=== PATIENT | female | born 1940 | race Caucasian/White ===

== ENCOUNTER 2021-05-22 14:31 | Emergency (ER) | payer MEDICARE, OTHER ==
--- NOTE | 2021-05-22 15:11 | EDM.PDOC ---
ED HPI GENERAL MEDICAL PROBLEM - General Chief Complaint: General Stated Complaint: weakness Time Seen by Provider: 05/22/21 14:45 Source of Information: Reports: Patient History Limitations: Reports: No Limitations - History of Present Illness INITIAL COMMENTS - FREE TEXT/NARRATIVE: Aaliyah is a 81 year old female who presents with multiple complaints. States awoke this am at 0500 and "didn't feel good". Took her usual meds at that time which included her diuretic and Miralax. Has been voiding every 30 minutes or so since then and that is unusual for her and "is wearing me out". Has had several soft stools today. Feels pressure in her abdomen from straining to defacate. Feels weak. Mild nausea, no vomiting. No shortness of breath. Mild chest discomfort when she lied down, only lasted a minute or so, none now. Denies dizziness, burning with urination. Has mild headache. Did not have much of an appetite at lunch Onset: Today, Gradual Duration: Hour(s):, Constant Location: Reports: Generalized Quality: Reports: Ache Severity: Mild Associated Symptoms: Denies: Confusion, Chest Pain Past Medical History Cardiovascular History: Reports: High Cholesterol, Hypertension, Pacemaker Gastrointestinal History: Reports: GERD Musculoskeletal History: Reports: Arthritis Endocrine/Metabolic History: Reports: Diabetes, Type II Social & Family History - Tobacco Use Tobacco Use Status *Q: Unknown Ever Used Tobacco ED ROS GENERAL - Review of Systems Review Of Systems: See Below Constitutional: Reports: Malaise, Weakness, Fatigue, Decreased Appetite. Denies: Fever, Chills HEENT: Denies: Ear Pain, Sinus Problem, Throat Pain, Vertigo Respiratory: Denies: Shortness of Breath, Cough Cardiovascular: Reports: Edema. Denies: Chest Pain, Lightheadedness Endocrine: Reports: Fatigue GI/Abdominal: Reports: Abdominal Pain, Nausea. Denies: Constipation, Diarrhea, Vomiting : Reports: Frequency Musculoskeletal: Reports: Joint Pain Skin: Reports: No Symptoms Neurological: Reports: Weakness ED EXAM, GENERAL - Physical Exam Exam: See Below Exam Limited By: No Limitations General Appearance: Alert, WD/WN, No Apparent Distress Ears: Normal External Exam, Normal TMs Nose: Normal Inspection, Normal Mucosa, No Blood Throat/Mouth: Normal Inspection, Normal Oropharynx Head: Normocephalic Neck: Normal Inspection, Supple, Non-Tender Respiratory/Chest: No Respiratory Distress, Lungs Clear, Normal Breath Sounds Cardiovascular: Regular Rate, Rhythm Extremities: Pedal Edema (1+) Neurological: Alert, Oriented Course - Orders/Labs/Meds Orders: Active Orders 24 hr Category Date Time Status CULTURE URINE [RM] Stat Lab 05/22/21 15:35 Received Labs: Laboratory Tests 05/22/21 05/22/21 05/22/21 Range/Units 14:35 15:15 15:15 WBC 11.5 H (4.0-10.0) x10^3/uL RBC 4.32 (4.00-5.50) x10^6/uL Hgb 13.0 (12.0-16.0) g/dL Hct 38.3 (33.0-47.0) % MCV 88.7 (78.0-93.0) fL MCH 30.1 (26.0-32.0) pg MCHC 33.9 (32.0-36.0) g/dL RDW Coeff of Hailey 14.2 (10.0-15.0) % Plt Count 210 (130-400) x10^3/uL Neut % (Auto) 85.8 H (50.0-80.0) % Lymph % (Auto) 8.0 L (25.0-50.0) % Gentry % (Auto) 5.1 (2.0-11.0) % Eos % (Auto) 1.0 (0.0-4.0) % Baso % (Auto) 0.1 L (0.2-1.2) % Sodium 141 (136-145) mmol/L Potassium 3.9 (3.5-5.1) mmol/L Chloride 101 (98-107) mmol/L Carbon Dioxide 29 (21-32) mmol/L Anion Gap 14.9 (5-15) mmol/L BUN 12 (7-18) mg/dL Creatinine 0.9 (0.55-1.02) mg/dL Est Cr Clr Drug Dosing TNP Estimated GFR (MDRD) > 60 Glucose 138 H (70-99) mg/dL Calcium 9.1 (8.5-10.1) mg/dL Corrected Calcium 9.7 (8.5-10.1) mg/dL Total Bilirubin 0.6 (0.2-1.0) mg/dL AST 98 H (15-37) U/L ALT 104 H (14-59) U/L Alkaline Phosphatase 102 (46-116) U/L Troponin I High Sens 28 (<=51) ng/L C-Reactive Protein 4.0 H (<=0.9) mg/dL Total Protein 7.5 (6.4-8.2) g/dL Albumin 3.2 L (3.4-5.0) g/dL Globulin 4.3 Albumin/Globulin Ratio 0.74 Urine Color (YELLOW) Urine Appearance (CLEAR) Urine pH (5.0-8.0) Ur Specific [place] Urine Protein (NEGATIVE) mg/dL Urine Glucose (UA) (NEGATIVE) mg/dL Urine Ketones (NEGATIVE) mg/dL Urine Occult Blood (NEGATIVE) Urine Nitrite (NEGATIVE) Urine Bilirubin (NEGATIVE) Urine Urobilinogen (0.2) EU/dL Ur Leukocyte Esterase (NEGATIVE) U Hyaline Cast (Auto) Urine RBC (NOT SEEN) /HPF Urine WBC (NOT SEEN) /HPF Ur Squamous Epith Cells (NOT SEEN) /HPF Amorphous Sediment Urine Bacteria (NOT SEEN) /HPF Urine Mucus (NOT SEEN) /LPF SARS CoV-2 RNA Rapid ANITA Negative (NEGATIVE) 05/22/21 Range/Units 15:35 WBC (4.0-10.0) x10^3/uL RBC (4.00-5.50) x10^6/uL Hgb (12.0-16.0) g/dL Hct (33.0-47.0) % MCV (78.0-93.0) fL MCH (26.0-32.0) pg MCHC (32.0-36.0) g/dL RDW Coeff of Hailey (10.0-15.0) % Plt Count (130-400) x10^3/uL Neut % (Auto) (50.0-80.0) % Lymph % (Auto) (25.0-50.0) % Gentry % (Auto) (2.0-11.0) % Eos % (Auto) (0.0-4.0) % Baso % (Auto) (0.2-1.2) % Sodium (136-145) mmol/L Potassium (3.5-5.1) mmol/L Chloride (98-107) mmol/L Carbon Dioxide (21-32) mmol/L Anion Gap (5-15) mmol/L BUN (7-18) mg/dL Creatinine (0.55-1.02) mg/dL Est Cr Clr Drug Dosing Estimated GFR (MDRD) Glucose (70-99) mg/dL Calcium (8.5-10.1) mg/dL Corrected Calcium (8.5-10.1) mg/dL Total Bilirubin (0.2-1.0) mg/dL AST (15-37) U/L ALT (14-59) U/L Alkaline Phosphatase (46-116) U/L Troponin I High Sens (<=51) ng/L C-Reactive Protein (<=0.9) mg/dL Total Protein (6.4-8.2) g/dL Albumin (3.4-5.0) g/dL Globulin Albumin/Globulin Ratio Urine Color Dark yellow H (YELLOW) Urine Appearance Slightly cloudy H (CLEAR) Urine pH 5.5 (5.0-8.0) Ur Specific [place] 1.020 Urine Protein 30 H (NEGATIVE) mg/dL Urine Glucose (UA) Negative (NEGATIVE) mg/dL Urine Ketones Negative (NEGATIVE) mg/dL Urine Occult Blood Negative (NEGATIVE) Urine Nitrite Negative (NEGATIVE) Urine Bilirubin Small H (NEGATIVE) Urine Urobilinogen 0.2 (0.2) EU/dL Ur Leukocyte Esterase Trace H (NEGATIVE) U Hyaline Cast (Auto) Few Urine RBC 0-5 (NOT SEEN) /HPF Urine WBC 5-10 H (NOT SEEN) /HPF Ur Squamous Epith Cells Moderate H (NOT SEEN) /HPF Amorphous Sediment Moderate Urine Bacteria Few H (NOT SEEN) /HPF Urine Mucus Few H (NOT SEEN) /LPF SARS CoV-2 RNA Rapid ANITA (NEGATIVE) Meds: Medications Discontinued Medications Generic Name Dose Route Start Last Admin Trade Name Freq PRN Reason Stop Dose Admin Scopolamine 1.5 mg 05/22/21 15:23 Scopolamine 1.5 Mg Transdermal Patch TRDERM Q72H PRN Nausea - Re-Assessments/Exams Free Text/Narrative Re-Assessment/Exam: 05/22/21 16:36 Patient resting in chair. Xrays negative. Labs show UTI, mild elevation of wBC at 11.5. Will start oral antibiotics, discharge home. Departure - Departure Time of Disposition: 16:44 Disposition: Home, Self-Care 01 Condition: Good Clinical Impression: UTI (urinary tract infection) - Discharge Information *PRESCRIPTION DRUG MONITORING PROGRAM REVIEWED*: No *COPY OF PRESCRIPTION DRUG MONITORING REPORT IN PATIENT INDERJIT: No Instructions: Urinary Tract Infection, Adult Forms: ED Department Discharge Additional Instructions: 1. Push fluids 2. Tylenol or ibuprofen for fever or discomfort 3. Levaquin 500 mg daily for 10 days, start tomorrow 4. Rest 5. Follow up with Dr. Estevez or any persisting concerns. - My Orders Last 24 Hours: My Active Orders 05/22/21 15:35 CULTURE URINE [RM] Stat - Assessment/Plan Last 24 Hours: My Active Orders 05/22/21 15:35 CULTURE URINE [RM] Stat
[2021-05-22] MEDS ORDERED: Scopolamine 1.5 MG Transdermal Patch TRDERM PRN (15:23)
[2021-05-22 15:44] LABS: CHLORIDE,CL 101 mmol/L (98-107); SODIUM,NA 141 mmol/L (136-145)
[2021-05-22 15:54] LABS: ANION GAP 14.9 mmol/L (5-15)
--- NOTE | 2021-05-22 16:29 | CR ---
[id number] RAD/RAD Chest PA And Lateral EXAM: RAD Chest PA And Lateral INDICATION: WEAKNESS. COMPARISON: None. DISCUSSION: Left chest wall cardiac conduction device. Cardiomediastinal silhouette is normal in size and contour. No infiltrate, effusion, pneumothorax, or edema. Pulmonary hyperinflation. IMPRESSION: No acute cardiopulmonary abnormality. Michael Salinas DO 05/22/21 [id number] Thank you for allowing us to participate in the care of your patient.
--- NOTE | 2021-05-22 16:29 | CR ---
[id number] RAD/RAD Abd Flat and Upright 2V EXAM: RAD Abd Flat and Upright 2V INDICATION: ABDOMINAL PAIN. COMPARISON: None. DISCUSSION: Unobstructed bowel gas pattern. No radiographically evident pneumoperitoneum. IMPRESSION: No acute findings in the abdomen. Michael Salinas DO 05/22/21 [id number] Thank you for allowing us to participate in the care of your patient.
[2021-05-22] MEDS ORDERED: cefTRIAXone 1 GM Vial IM ONE (16:40)
[2021-05-22] MEDS ORDERED: cefTRIAXone 1 GM, Lidocaine 1% 2.1 ML IM ONE ×2 (16:50)
== END 2021-05-22 17:20 | disposition home or self-care (01) ==
LOC: VM.ED 14:31
DX: N39.0 Urinary tract infection, site not specified (principal); E78.00 Pure hypercholesterolemia, unspecified; I10 Essential (primary) hypertension; E11.9 Type 2 diabetes mellitus without complications; Z95.0 Presence of cardiac pacemaker; Z20.822 Contact with and (suspected) exposure to COVID-19
CPT/HCPCS: 36415; 71046; 74019; 80053; 81001; 84484; 85025; 86140; 87086; 96372; 99284; 99285-25; J0696; U0002

== ENCOUNTER 2022-06-08 01:23 | Emergency (ER) | payer MEDICARE, OTHER | END 2022-06-08 03:30 | disposition home or self-care (01) | LOC: VM.ED 01:23 | DX: S93.401A Sprain of unspecified ligament of right ankle, initial encounter (principal); S80.02XA Contusion of left knee, initial encounter; I10 Essential (primary) hypertension; E11.9 Type 2 diabetes mellitus without complications; Z88.1 Allergy status to other antibiotic agents; W01.0XXA Fall on same level from slipping, tripping and stumbling without subsequent striking against object, initial encounter | CPT/HCPCS: 73562-LT; 73610-LT; 99284 ==

== ENCOUNTER 2022-08-22 22:58 | Inpatient (IN) | payer MEDICARE, OTHER ==
[2022-08-22] MEDS ORDERED: Sodium Chloride 0.9% 1,000 ML IV ONE (23:39)
[2022-08-22] MEDS ORDERED: cefTRIAXone 1 GM Vial IVPUSH ONE (23:39)
[2022-08-23] MEDS ORDERED: Acetaminophen 325 MG Tab PO ONE (00:25)
[2022-08-23 01:01] LABS: ANION GAP 10.6 mmol/L (5-15)
[2022-08-23 01:01] LABS: CORONAVIRUS COVID-19 NAA NEGATIVE (NEGATIVE)
[2022-08-23 01:02] LABS: RESPIRATORY SYNCYTIAL VIR NAA NEGATIVE (NEGATIVE)
[2022-08-23] MEDS ORDERED: Cholecalciferol (Vitamin D3) 10 MCG Tab ONE (13:37)
[2022-08-23] MEDS ORDERED: metFORMIN 500 MG Tab ONE (13:37)
[2022-08-23] MEDS ORDERED: cefTRIAXone 1 GM Vial ONE (13:37)
[2022-08-23] MEDS ORDERED: Furosemide 40 MG Tab ONE (13:37)
[2022-08-23] MEDS ORDERED: Allopurinol 300 MG Tab ONE (13:37)
[2022-08-23] MEDS ORDERED: Acetaminophen 500 MG Tab ONE (13:37)
[2022-08-23] MEDS ORDERED: Calcium Citrate/Vitamin D3 315 MG-250 Unit Tab ONE (13:37)
[2022-08-23] MEDS ORDERED: rOPINIRole 0.5 MG Tab ONE (13:37)
[2022-08-23] MEDS ORDERED: Multivitamin Tab ONE (13:37)
[2022-08-23] MEDS ORDERED: Carvedilol 3.125 MG Tab ONE (13:37)
[2022-08-23] MEDS ORDERED: Aspirin 81 MG Tab.EC ONE (13:37)
[2022-08-23] MEDS ORDERED: Lisinopril 10 MG Tab ONE (13:37)
[2022-08-23] MEDS ORDERED: atorvaSTATin 10 MG Tab ONE (13:37)
[2022-08-23] MEDS ORDERED: Piperacillin/Tazobactam 4.5 GM in Sodium Chloride 0.9% 100 ML IV ONE (13:48)
[2022-08-23] MEDS ORDERED: Piperacillin/Tazobactam 3.375 GM in Sodium Chloride 0.9% 100 ML IV ONE (20:14)
[2022-08-24] MEDS ORDERED: Piperacillin/Tazobactam 3.375 GM in Sodium Chloride 0.9% 100 ML IV ONE (04:26)
[2022-08-24] MEDS ORDERED: Calcium Citrate/Vitamin D3 315 MG-250 Unit Tab ONE (07:37)
[2022-08-24] MEDS ORDERED: Furosemide 40 MG Tab ONE (07:37)
[2022-08-24] MEDS ORDERED: Pantoprazole 40 MG Vial ONE (07:37)
[2022-08-24] MEDS ORDERED: Allopurinol 300 MG Tab ONE (07:37)
[2022-08-24] MEDS ORDERED: Lisinopril 10 MG Tab ONE (07:37)
[2022-08-24] MEDS ORDERED: rOPINIRole 0.5 MG Tab ONE (07:37)
[2022-08-24] MEDS ORDERED: Multivitamin Tab ONE (07:37)
[2022-08-24] MEDS ORDERED: Omeprazole 20 MG Cap.CR ONE (07:37)
[2022-08-24] MEDS ORDERED: atorvaSTATin 10 MG Tab ONE (07:37)
[2022-08-24] MEDS ORDERED: Carvedilol 3.125 MG Tab ONE (07:37)
[2022-08-24] MEDS ORDERED: metFORMIN 500 MG Tab ONE (07:37)
[2022-08-24] MEDS ORDERED: Acetaminophen 500 MG Tab ONE (07:37)
[2022-08-24] MEDS ORDERED: Cholecalciferol (Vitamin D3) 10 MCG Tab ONE (07:37)
[2022-08-25] MEDS ORDERED: Piperacillin/Tazobactam 3.375 GM in Sodium Chloride 0.9% 100 ML IV ONE (04:57)
[2022-08-25] MEDS ORDERED: rOPINIRole 0.5 MG Tab ONE (06:31)
[2022-08-25] MEDS ORDERED: Allopurinol 300 MG Tab ONE (06:31)
[2022-08-25] MEDS ORDERED: Multivitamin Tab ONE (06:31)
[2022-08-25] MEDS ORDERED: Calcium Citrate/Vitamin D3 315 MG-250 Unit Tab ONE (06:31)
[2022-08-25] MEDS ORDERED: Cholecalciferol (Vitamin D3) 10 MCG Tab ONE (06:31)
[2022-08-25] MEDS ORDERED: Lisinopril 10 MG Tab ONE (06:31)
[2022-08-25] MEDS ORDERED: metFORMIN 500 MG Tab ONE (06:31)
[2022-08-25] MEDS ORDERED: Furosemide 40 MG Tab ONE (06:31)
[2022-08-25] MEDS ORDERED: Carvedilol 3.125 MG Tab ONE (06:31)
[2022-08-25] MEDS ORDERED: Omeprazole 20 MG Cap.CR ONE (06:31)
[2022-08-25] MEDS ORDERED: Acetaminophen 500 MG Tab ONE (06:31)
[2022-08-25] MEDS ORDERED: atorvaSTATin 10 MG Tab ONE (06:31)
[2022-08-26] MEDS ORDERED: Piperacillin/Tazobactam 3.375 GM in Sodium Chloride 0.9% 100 ML IV ONE (04:31)
[2022-08-26] MEDS ORDERED: Iopamidol 612 MG/ML 100 ML Bottle ONE (07:02)
[2022-08-26] MEDS ORDERED: Iopamidol 612 MG/ML 50 ML SDV ONE (07:02)
[2022-08-26] MEDS ORDERED: Carvedilol 3.125 MG Tab ONE (09:09)
[2022-08-26] MEDS ORDERED: Allopurinol 300 MG Tab ONE (09:09)
[2022-08-26] MEDS ORDERED: metFORMIN 500 MG Tab ONE (09:09)
[2022-08-26] MEDS ORDERED: atorvaSTATin 10 MG Tab ONE (09:09)
[2022-08-26] MEDS ORDERED: Acetaminophen 500 MG Tab ONE (09:09)
[2022-08-26] MEDS ORDERED: Omeprazole 20 MG Cap.CR ONE (09:09)
[2022-08-26] MEDS ORDERED: Cholecalciferol (Vitamin D3) 10 MCG Tab ONE (09:09)
[2022-08-26] MEDS ORDERED: Calcium Citrate/Vitamin D3 315 MG-250 Unit Tab ONE (09:09)
[2022-08-26] MEDS ORDERED: Lisinopril 10 MG Tab ONE (09:09)
[2022-08-26] MEDS ORDERED: Potassium Chloride 20 MEQ Tab.ER ONE (09:09)
[2022-08-26] MEDS ORDERED: Furosemide 40 MG Tab ONE (09:09)
[2022-08-26] MEDS ORDERED: rOPINIRole 0.5 MG Tab ONE (09:09)
[2022-08-27] MEDS ORDERED: Piperacillin/Tazobactam 3.375 GM in Sodium Chloride 0.9% 100 ML IV ONE (04:27)
[2022-08-27] MEDS ORDERED: atorvaSTATin 10 MG Tab ONE (08:06)
[2022-08-27] MEDS ORDERED: Ferrous Sulfate 325 MG Tab ONE (08:06)
[2022-08-27] MEDS ORDERED: Multivitamin Tab ONE (08:06)
[2022-08-27] MEDS ORDERED: rOPINIRole 0.5 MG Tab ONE (08:06)
[2022-08-27] MEDS ORDERED: Cholecalciferol (Vitamin D3) 5,000 UNIT Tab ONE (08:06)
[2022-08-27] MEDS ORDERED: Calcium Citrate/Vitamin D3 315 MG-250 Unit Tab ONE (08:06)
[2022-08-27] MEDS ORDERED: Acetaminophen 500 MG Tab ONE (08:06)
[2022-08-27] MEDS ORDERED: Carvedilol 3.125 MG Tab ONE (08:06)
[2022-08-27] MEDS ORDERED: metFORMIN 500 MG Tab ONE (08:06)
[2022-08-27] MEDS ORDERED: Omeprazole 20 MG Cap.CR ONE (08:06)
[2022-08-27] MEDS ORDERED: Furosemide 40 MG Tab ONE (08:06)
[2022-08-27] MEDS ORDERED: Lisinopril 10 MG Tab ONE (08:06)
[2022-08-27] MEDS ORDERED: Allopurinol 300 MG Tab ONE (08:06)
[2022-08-27] MEDS ORDERED: Potassium Chloride 20 MEQ Tab.ER ONE (08:06)
[2022-09-10 19:43] LABS: ANION GAP 12.9 mmol/L (5-15)
[2022-09-11 10:14] LABS: ANION GAP 11.7 mmol/L (5-15)
[2022-09-11 11:25] LABS: ANION GAP 12.1 mmol/L (5-15)
[2022-09-11 12:03] LABS: ANION GAP 12.5 mmol/L (5-15)
[2022-09-11 13:04] LABS: ANION GAP 13.5 mmol/L (5-15)
== END 2022-08-28 13:29 | disposition swing bed (61) | DRG 872 ==
LOC: VM.ED 22:58 → VM.ZCENSUS 08-23 01:06 → VM.ED 08-23 01:25
PROVIDERS: ADMIT Nurse Practitioner Family; ATTEND Nurse Practitioner Family
DX: A41.9 Sepsis, unspecified organism (principal); L03.116 Cellulitis of left lower limb; I50.32 Chronic diastolic (congestive) heart failure; I25.10 Atherosclerotic heart disease of native coronary artery without angina pectoris; E78.5 Hyperlipidemia, unspecified; Z66 Do not resuscitate; Z20.822 Contact with and (suspected) exposure to COVID-19; Z23 Encounter for immunization; E78.00 Pure hypercholesterolemia, unspecified; E11.628 Type 2 diabetes mellitus with other skin complications; I10 Essential (primary) hypertension; I11.0 Hypertensive heart disease with heart failure; M1A.9XX0 Chronic gout, unspecified, without tophus (tophi); D63.8 Anemia in other chronic diseases classified elsewhere; G25.81 Restless legs syndrome; K64.9 Unspecified hemorrhoids; E87.6 Hypokalemia; K21.9 Gastro-esophageal reflux disease without esophagitis; E11.9 Type 2 diabetes mellitus without complications; Z87.891 Personal history of nicotine dependence; M19.90 Unspecified osteoarthritis, unspecified site; Z95.0 Presence of cardiac pacemaker; Z79.4 Long term (current) use of insulin; Z88.1 Allergy status to other antibiotic agents
CPT/HCPCS: 0241U; 36415; 71045; 74177; 80048; 80053; 81001; 82550; 82947; 83605; 83615; 83880; 84145; 85018; 85025; 85027; 85610; 86140; 86850; 86870; 86880; 86900; 86901; 87040; 96361; 96366; 96372; 96374; 97110-GP; 97116-GP; 97161-GP; 97165-GO; 97535-GO; 99284; 99285-25; A9270-GY; C9113; G0008; J0696; J2543; J7030; Q9967

== ENCOUNTER 2022-08-28 13:25 | Inpatient (IN) | payer MEDICARE, OTHER ==
[2022-09-11 16:14] LABS: ANION GAP 12.8 mmol/L (5-15); CHLORIDE,CL 101 mmol/L (98-107); SODIUM,NA 138 mmol/L (136-145)
[2022-09-11 16:15] LABS: ESTIMATED GFR 74 mL/min (>=60)
== END 2022-08-31 13:25 | DRG 948 ==
LOC: VM.ZCENSUS 13:25 → UNDOADMIN 08-31 13:25
PROVIDERS: ADMIT Internal Medicine; ATTEND Internal Medicine
DX: R53.1 Weakness (principal); I10 Essential (primary) hypertension; I25.10 Atherosclerotic heart disease of native coronary artery without angina pectoris; E11.9 Type 2 diabetes mellitus without complications; E78.5 Hyperlipidemia, unspecified; K21.9 Gastro-esophageal reflux disease without esophagitis; G25.81 Restless legs syndrome; E83.42 Hypomagnesemia; M15.9 Polyosteoarthritis, unspecified; D50.0 Iron deficiency anemia secondary to blood loss (chronic); Z79.4 Long term (current) use of insulin; Z87.19 Personal history of other diseases of the digestive system; Z95.0 Presence of cardiac pacemaker
CPT/HCPCS: 36415; 80048; 83735; 85027; 96372

== ENCOUNTER 2024-08-23 17:05 | Inpatient (IN) | payer MEDICARE, OTHER ==
[2024-08-23] MEDS ORDERED: Sodium Chloride 0.9% 10 ML Syringe FLUSH PRN (17:13)
[2024-08-23 17:24] LABS: BASOPHILS PERCENT AUTO 0.1 % (0.2-1.2); EOSINOPHILS ABSOLUTE AUTO 0.1 x10^3/uL (0.0-0.5); EOSINOPHILS PERCENT AUTO 0.3 % (0.0-4.0); HEMATOCRIT 36.8 % (33.0-47.0); HEMOGLOBIN 12.6 g/dL (12.0-16.0); IMMATURE GRAN ABSOLUTE AUTO 0.02 x10^3/uL (0.00-0.07); LYMPHOCYTES ABSOLUTE AUTO 1.3 x10^3/uL (1.0-4.8); LYMPHOCYTES PERCENT AUTO 7.3 % (25.0-50.0); MEAN CORPUSCULAR HEMOGLOBIN 31.2 pg (26.0-32.0); MEAN CORPUSCULAR HGB CONC 34.2 g/dL (32.0-36.0); MEAN CORPUSCULAR VOLUME 91.1 fL (78.0-93.0); MONOCYTES ABSOLUTE AUTO 0.8 x10^3/uL (0.0-0.8); MONOCYTES PERCENT AUTO 4.5 % (2.0-11.0); NEUTROPHILS ABSOLUTE AUTO 15.2 x10^3/uL (1.8-7.7); NEUTROPHILS PERCENT AUTO 87.7 % (50.0-80.0); PLATELET COUNT,PLT 288 x10^3/uL (130-400); RED BLOOD CELL COUNT 4.04 x10^6/uL (4.00-5.50)
[2024-08-23] MEDS: Sodium Chloride 0.9% 500 ML IV ONE (17:24)
[2024-08-23 17:29] LABS: WHITE BLOOD CELL COUNT,WBC 17.3 x10^3/uL (4.0-10.0)
[2024-08-23 17:41] LABS: A/G RATIO 0.71; ALANINE AMINOTRANSFERASE,ALT 143 U/L (14-59); ALBUMIN 2.9 g/dL (3.4-5.0); ALKALINE PHOSPHATASE 356 U/L (46-116); ASPARTATE AMNIOTRANSFERASE,AST 177 U/L (15-37); BILIRUBIN TOTAL 1.5 mg/dL (0.2-1.0); BLOOD UREA NITROGEN,BUN 29 mg/dL (7-18); CALCIUM 9.8 mg/dL (8.5-10.1); CARBON DIOXIDE,CO2 24 mmol/L (21-32); CHLORIDE,CL 99 mmol/L (98-107); CREATININE 1.4 mg/dL (0.55-1.02); GLUCOSE RANDOM 206 mg/dL (70-99); POTASSIUM,K 4.8 mmol/L (3.5-5.1); SODIUM,NA 136 mmol/L (136-145)
[2024-08-23 17:43] LABS: ANION GAP 17.8 mmol/L (5-15); ESTIMATED GFR 38 mL/min (>=60)
[2024-08-23 18:20] LABS: APPEARANCE,URINE TURBID (CLEAR); BILIRUBIN,URINE MODERATE (NEGATIVE); COLOR,URINE DARK YELLOW (YELLOW); GLUCOSE,URINE NEGATIVE (NEGATIVE); KETONES,URINE NEGATIVE (NEGATIVE); LEUKOCYTE ESTERASE,URINE MODERATE (NEGATIVE); NITRITE,URINE NEGATIVE (NEGATIVE); OCCULT BLOOD,URINE TRACE-INTACT (NEGATIVE); PROTEIN,URINE 30 mg/dL (NEGATIVE); UROBILINOGEN,URINE 0.2 EU/dL (0.2)
[2024-08-23 18:24] LABS: AMORPHOUS SEDIMENT,URINE MODERATE; BACTERIA,URINE MODERATE /HPF (NOT SEEN); MUCUS,URINE FEW /LPF (NOT SEEN); SQUAMOUS EPITHELIAL CELLS,UR FEW /HPF (NOT SEEN); WBC,URINE 40-50 /HPF (NOT SEEN)
[2024-08-23] MEDS: Cefepime 1 GM Vial IVPUSH ONE (18:38)
[2024-08-23] MEDS: Iopamidol 612 MG/ML 100 ML Bottle IVPUSH ONE (18:51)
[2024-08-23 19:36] LABS: LACTIC ACID 1.6 mmol/L (0.4-2.0)
[2024-08-23] MEDS: fentaNYL 100 MCG/2 ML SDV IVPUSH ONE (20:02)
[2024-08-23] MEDS ORDERED: Ondansetron 4 MG/2 ML SDV IV PRN (22:05)
[2024-08-23] MEDS: metroNIDAZOLE/Normal Saline 500 MG in Premix Bag 1 BAG IV ONE (22:11)
[2024-08-23] MEDS ORDERED: Cefepime 1 GM in Sodium Chloride 0.9% 100 ML IV SCH (22:15)
[2024-08-23] MEDS: Sodium Chloride 0.9% 1,000 ML IV SCH (22:30)
[2024-08-23] MEDS: Heparin Sodium 5,000 Units/ML Vial SUBCUT SCH (22:31)
[2024-08-23] MEDS: Carvedilol 3.125 MG Tab PO SCH (23:00)
[2024-08-23] MEDS ORDERED: fentaNYL 50 MCG/ML SDV IVPUSH PRN (23:03)
[2024-08-23] MEDS ORDERED: Naloxone 0.4 MG/ML SDV IVPUSH PRN (23:03)
[2024-08-23] MEDS: rOPINIRole 0.5 MG Tab PO SCH (23:03)
[2024-08-23] MEDS: Diclofenac Sodium 1% Gel 100 GM Tube TOP PRN (23:19)
[2024-08-24] MEDS: metroNIDAZOLE/Normal Saline 500 MG in Premix Bag 1 BAG IV SCH (03:42)
[2024-08-24] MEDS: Cefepime 1 GM in Sodium Chloride 0.9% 100 ML IV SCH (05:56)
[2024-08-24 07:44] LABS: BASOPHILS PERCENT AUTO 0.3 % (0.2-1.2); EOSINOPHILS ABSOLUTE AUTO 0.1 x10^3/uL (0.0-0.5); EOSINOPHILS PERCENT AUTO 1.7 % (0.0-4.0); HEMATOCRIT 32.4 % (33.0-47.0); HEMOGLOBIN 10.8 g/dL (12.0-16.0); IMMATURE GRAN ABSOLUTE AUTO 0.01 x10^3/uL (0.00-0.07); LYMPHOCYTES ABSOLUTE AUTO 1.5 x10^3/uL (1.0-4.8); LYMPHOCYTES PERCENT AUTO 20.2 % (25.0-50.0); MEAN CORPUSCULAR HEMOGLOBIN 31.1 pg (26.0-32.0); MEAN CORPUSCULAR HGB CONC 33.3 g/dL (32.0-36.0); MEAN CORPUSCULAR VOLUME 93.4 fL (78.0-93.0); MONOCYTES ABSOLUTE AUTO 0.7 x10^3/uL (0.0-0.8); MONOCYTES PERCENT AUTO 8.7 % (2.0-11.0); NEUTROPHILS ABSOLUTE AUTO 5.3 x10^3/uL (1.8-7.7); PLATELET COUNT,PLT 225 x10^3/uL (130-400); RED BLOOD CELL COUNT 3.47 x10^6/uL (4.00-5.50); WHITE BLOOD CELL COUNT,WBC 7.6 x10^3/uL (4.0-10.0)
[2024-08-24 07:56] LABS: A/G RATIO 0.71; ALBUMIN 2.5 g/dL (3.4-5.0); CALCIUM 9.1 mg/dL (8.5-10.1); EST CRCL DRUG DOSING (CG) 39.03 mL/min; POTASSIUM,K 4.3 mmol/L (3.5-5.1)
[2024-08-24 07:58] LABS: ANION GAP 12.3 mmol/L (5-15)
[2024-08-24] MEDS ORDERED: [UNRECOGNIZED DRUG - OTHER] SQ SCH (09:00)
[2024-08-24] MEDS ORDERED: REG INSULIN SQ SCH (09:00)
[2024-08-24] MEDS ORDERED: INSULIN NPH HUM SQ SCH (09:00)
[2024-08-24] MEDS: Pantoprazole 40 MG Vial IVPUSH SCH (09:10)
[2024-08-24] MEDS: Lisinopril 10 MG Tab PO SCH (09:11)
[2024-08-24] MEDS: Furosemide 40 MG Tab PO SCH (09:11)
[2024-08-24] MEDS: Allopurinol 300 MG Tab PO SCH (09:11)
[2024-08-24] MEDS: Insulin Lispro Protamine/Lispro 75-25 100 Units/ML 10 ML Vial SUBCUT SCH (09:22)
[2024-08-24] MEDS: Nystatin Crm 30 GM Tube TOP SCH (11:22)
[2024-08-24] MEDS: atorvaSTATin 40 MG Tab PO SCH (20:02)
[2024-08-24] MEDS: Acetaminophen 500 MG Tab PO PRN (22:21)
[2024-08-25 06:53] LABS: BASOPHILS PERCENT AUTO 0.3 % (0.2-1.2); EOSINOPHILS ABSOLUTE AUTO 0.2 x10^3/uL (0.0-0.5); EOSINOPHILS PERCENT AUTO 2.6 % (0.0-4.0); HEMATOCRIT 32.2 % (33.0-47.0); HEMOGLOBIN 10.6 g/dL (12.0-16.0); IMMATURE GRAN ABSOLUTE AUTO 0.01 x10^3/uL (0.00-0.07); LYMPHOCYTES ABSOLUTE AUTO 1.8 x10^3/uL (1.0-4.8); LYMPHOCYTES PERCENT AUTO 26.7 % (25.0-50.0); MEAN CORPUSCULAR HEMOGLOBIN 30.9 pg (26.0-32.0); MEAN CORPUSCULAR HGB CONC 32.9 g/dL (32.0-36.0); MEAN CORPUSCULAR VOLUME 93.9 fL (78.0-93.0); MONOCYTES ABSOLUTE AUTO 0.6 x10^3/uL (0.0-0.8); MONOCYTES PERCENT AUTO 9.1 % (2.0-11.0); NEUTROPHILS PERCENT AUTO 61.1 % (50.0-80.0); PLATELET COUNT,PLT 250 x10^3/uL (130-400); RED BLOOD CELL COUNT 3.43 x10^6/uL (4.00-5.50); WHITE BLOOD CELL COUNT,WBC 6.6 x10^3/uL (4.0-10.0)
[2024-08-25] MEDS ORDERED: Dextrose 5% in Water 1,000 ML IV SCH (07:00)
[2024-08-25] MEDS: Dextrose 5%-0.9% NaCl 1,000 ML IV SCH (07:01)
[2024-08-25 07:15] LABS: A/G RATIO 0.61; ALBUMIN 2.3 g/dL (3.4-5.0); BILIRUBIN TOTAL 0.7 mg/dL (0.2-1.0); EST CRCL DRUG DOSING (CG) 39.03 mL/min; POTASSIUM,K 3.7 mmol/L (3.5-5.1); PROTEIN TOTAL,TP 6.1 g/dL (6.4-8.2)
[2024-08-25 07:30] LABS: ANION GAP 11.7 mmol/L (5-15)
== END 2024-08-25 20:07 | disposition short-term general hospital (02) | DRG 445 ==
LOC: VM.ED 17:05 → VM.MS 20:47
PROVIDERS: ADMIT Nurse Practitioner Family; ATTEND Nurse Practitioner Family
DX: K80.63 Calculus of gallbladder and bile duct with acute cholecystitis with obstruction (principal); K80.01 Calculus of gallbladder with acute cholecystitis with obstruction; N30.01 Acute cystitis with hematuria; K21.9 Gastro-esophageal reflux disease without esophagitis; E11.9 Type 2 diabetes mellitus without complications; E87.6 Hypokalemia; G25.81 Restless legs syndrome; G89.29 Other chronic pain; Z79.84 Long term (current) use of oral hypoglycemic drugs; M25.561 Pain in right knee; M25.562 Pain in left knee; E66.01 Morbid (severe) obesity due to excess calories; M10.9 Gout, unspecified; I25.10 Atherosclerotic heart disease of native coronary artery without angina pectoris; I10 Essential (primary) hypertension; K57.90 Diverticulosis of intestine, part unspecified, without perforation or abscess without bleeding; M81.0 Age-related osteoporosis without current pathological fracture; E78.00 Pure hypercholesterolemia, unspecified; R32 Unspecified urinary incontinence; Z79.4 Long term (current) use of insulin; Z88.1 Allergy status to other antibiotic agents; Z95.0 Presence of cardiac pacemaker; Z68.36 Body mass index [BMI] 36.0-36.9, adult; Z79.82 Long term (current) use of aspirin; Z79.899 Other long term (current) drug therapy; Z90.710 Acquired absence of both cervix and uterus; Z98.890 Other specified postprocedural states; Z77.22 Contact with and (suspected) exposure to environmental tobacco smoke (acute) (chronic)
CPT/HCPCS: 74177; 80053; 81001; 83605; 85025; 87086; 87088; 87186; 96374; 96375; 99285; J0692; J3010; J7030; Q9967; 36415; 82947; 99238; 99284; A9270-GY; J1644; J1815-GY; J1836; J2470; J3490; J7042

== ENCOUNTER 2025-03-25 15:31 | Inpatient (IN) | payer MEDICARE, OTHER ==
[2025-03-25] MEDS ORDERED: Sodium Chloride 0.9% 10 ML Syringe FLUSH PRN (15:41)
[2025-03-25 15:58] LABS: BASOPHILS PERCENT AUTO 0.1 % (0.2-1.2); EOSINOPHILS ABSOLUTE AUTO 0.1 x10^3/uL (0.0-0.5); EOSINOPHILS PERCENT AUTO 1.4 % (0.0-4.0); HEMATOCRIT 37.2 % (33.0-47.0); HEMOGLOBIN 12.3 g/dL (12.0-16.0); IMMATURE GRAN ABSOLUTE AUTO 0.03 x10^3/uL (0.00-0.07); LYMPHOCYTES ABSOLUTE AUTO 1.8 x10^3/uL (1.0-4.8); LYMPHOCYTES PERCENT AUTO 19.5 % (25.0-50.0); MEAN CORPUSCULAR HEMOGLOBIN 30.5 pg (26.0-32.0); MEAN CORPUSCULAR HGB CONC 33.1 g/dL (32.0-36.0); MEAN CORPUSCULAR VOLUME 92.3 fL (78.0-93.0); MONOCYTES ABSOLUTE AUTO 0.5 x10^3/uL (0.0-0.8); MONOCYTES PERCENT AUTO 5.4 % (2.0-11.0); NEUTROPHILS ABSOLUTE AUTO 6.9 x10^3/uL (1.8-7.7); NEUTROPHILS PERCENT AUTO 73.3 % (50.0-80.0); PLATELET COUNT,PLT 194 x10^3/uL (130-400); RED BLOOD CELL COUNT 4.03 x10^6/uL (4.00-5.50); WHITE BLOOD CELL COUNT,WBC 9.4 x10^3/uL (4.0-10.0)
[2025-03-25 16:15] LABS: INR 0.9 (0.9-1.1); PROTHROMBIN TIME 9.6 SEC (9.6-12.0); PTT,PARTIAL THROMBOPLSTIN TIME 25.8 SEC (23.5-33.2)
[2025-03-25 16:26] LABS: ALANINE AMINOTRANSFERASE,ALT 22 U/L (14-59); ALBUMIN 3.3 g/dL (3.4-5.0); ALKALINE PHOSPHATASE 72 U/L (46-116); ANION GAP 12.1 mmol/L (5-15); ASPARTATE AMNIOTRANSFERASE,AST 26 U/L (15-37); BILIRUBIN TOTAL 0.3 mg/dL (0.2-1.0); BLOOD UREA NITROGEN,BUN 27 mg/dL (7-18); C-REACTIVE PROTEIN < 0.50 mg/dL (<=0.50); CALCIUM 9.6 mg/dL (8.5-10.1); CARBON DIOXIDE,CO2 30 mmol/L (21-32); CHLORIDE,CL 101 mmol/L (98-107); CREATINE KINASE,CK 73 U/L (26-192); CREATININE 1.2 mg/dL (0.55-1.02); ESTIMATED GFR 45 mL/min (>=60); GLUCOSE RANDOM 141 mg/dL (70-99); MAGNESIUM 2.3 mg/dL (1.8-2.4); POTASSIUM,K 4.1 mmol/L (3.5-5.1); PROTEIN TOTAL,TP 6.6 g/dL (6.4-8.2); SODIUM,NA 139 mmol/L (136-145); TSH ULTRASENSITIVE 1.956 uIU/mL (0.358-3.74)
[2025-03-25] MEDS: HYDROmorphone 0.5 MG/0.5 ML Syringe IVPUSH ONE (16:54)
[2025-03-25] MEDS ORDERED: Ondansetron 4 MG/2 ML SDV IV PRN (21:00)
[2025-03-25] MEDS ORDERED: Non-Formulary Medication 1 Each (Calcium Carbonate [Tums] 500 MG Tab.Chew) PO PRN (21:06)
[2025-03-25] MEDS ORDERED: Loperamide 2 MG Cap PO PRN (21:06)
[2025-03-25] MEDS: Acetaminophen 500 MG Tab PO PRN (22:18)
[2025-03-26] MEDS ORDERED: Calcium Carbonate 750 MG Tab.Chew PO PRN (00:40)
[2025-03-26 06:19] LABS: APPEARANCE,URINE CLEAR (CLEAR); BILIRUBIN,URINE NEGATIVE (NEGATIVE); COLOR,URINE YELLOW (YELLOW); GLUCOSE,URINE NEGATIVE (NEGATIVE); KETONES,URINE NEGATIVE (NEGATIVE); LEUKOCYTE ESTERASE,URINE TRACE (NEGATIVE); NITRITE,URINE NEGATIVE (NEGATIVE); OCCULT BLOOD,URINE NEGATIVE (NEGATIVE); PROTEIN,URINE NEGATIVE (NEGATIVE); UROBILINOGEN,URINE 0.2 EU/dL (0.2)
[2025-03-26] MEDS ORDERED: 50% Dextrose in Water 50 ML Syringe IVPUSH PRN (06:20)
[2025-03-26] MEDS ORDERED: Glucagon,Human Recombinant 1 MG Vial IM PRN (06:20)
[2025-03-26] MEDS ORDERED: Polyethylene Glycol 3350 Powder 17 GM Packet PO PRN (06:21)
[2025-03-26 06:30] LABS: EPITHELIAL CELLS,URINE RARE; RBC,URINE 0-5 /HPF (NOT SEEN); WBC,URINE 0-5 /HPF (NOT SEEN)
[2025-03-26 06:31] LABS: BACTERIA,URINE RARE /HPF (NOT SEEN)
[2025-03-26] MEDS: Pantoprazole 40 MG Tab.CR PO SCH (06:37)
[2025-03-26 06:40] LABS: CALCIUM 9.3 mg/dL (8.5-10.1); CREATININE 1.1 mg/dL (0.55-1.02); EST CRCL DRUG DOSING (CG) 33.46 mL/min; POTASSIUM,K 4.4 mmol/L (3.5-5.1)
[2025-03-26 06:41] LABS: ANION GAP 12.4 mmol/L (5-15); BASOPHILS PERCENT AUTO 0.3 % (0.2-1.2); EOSINOPHILS ABSOLUTE AUTO 0.3 x10^3/uL (0.0-0.5); EOSINOPHILS PERCENT AUTO 2.5 % (0.0-4.0); HEMATOCRIT 36.6 % (33.0-47.0); HEMOGLOBIN 12.2 g/dL (12.0-16.0); IMMATURE GRAN ABSOLUTE AUTO 0.01 x10^3/uL (0.00-0.07); LYMPHOCYTES ABSOLUTE AUTO 2.6 x10^3/uL (1.0-4.8); LYMPHOCYTES PERCENT AUTO 24.6 % (25.0-50.0); MEAN CORPUSCULAR HEMOGLOBIN 31.1 pg (26.0-32.0); MEAN CORPUSCULAR HGB CONC 33.3 g/dL (32.0-36.0); MEAN CORPUSCULAR VOLUME 93.4 fL (78.0-93.0); MONOCYTES ABSOLUTE AUTO 0.8 x10^3/uL (0.0-0.8); MONOCYTES PERCENT AUTO 7.2 % (2.0-11.0); NEUTROPHILS ABSOLUTE AUTO 6.9 x10^3/uL (1.8-7.7); NEUTROPHILS PERCENT AUTO 65.3 % (50.0-80.0); PLATELET COUNT,PLT 229 x10^3/uL (130-400); RED BLOOD CELL COUNT 3.92 x10^6/uL (4.00-5.50); WHITE BLOOD CELL COUNT,WBC 10.6 x10^3/uL (4.0-10.0)
[2025-03-26] MEDS ORDERED: Non-Formulary Medication 1 Each (Omeprazole Magnesium [Prilosec Otc] 20 MG Tablet.Dr) PO SCH (07:00)
[2025-03-26] MEDS: oxyCODONE 5 MG Tab PO PRN (07:20)
[2025-03-26] MEDS ORDERED: Mineral Oil/Petrolatum/Phenylephrine/Shark Liver Oil Oint 57 GM Tube TOP PRN (07:21)
[2025-03-26] MEDS ORDERED: Furosemide 40 MG Tab PO SCH (09:00)
[2025-03-26] MEDS: Insulin Lispro 100 Units/ML 3 ML Vial SUBCUT SCH (09:05)
[2025-03-26] MEDS: Calcium Citrate/Vitamin D3 315 MG-250 Unit Tab PO SCH (09:06)
[2025-03-26] MEDS: Aspirin 81 MG Tab.EC PO SCH (09:06)
[2025-03-26] MEDS: Magnesium Oxide 400 MG Tab PO SCH (09:06)
[2025-03-26] MEDS: rOPINIRole 0.5 MG Tab PO SCH (09:06)
[2025-03-26] MEDS: Allopurinol 300 MG Tab PO SCH (09:06)
[2025-03-26] MEDS: Multivitamin Tab PO SCH (09:06)
[2025-03-26] MEDS: Ferrous Sulfate 325 MG Tab PO SCH (09:06)
[2025-03-26] MEDS: Carvedilol 3.125 MG Tab PO SCH (09:06)
[2025-03-26] MEDS: Potassium Chloride 10 MEQ Tab.ER PO SCH (09:06)
[2025-03-26] MEDS: Cholecalciferol (Vitamin D3) 25 MCG Tab PO SCH (09:07)
[2025-03-26] MEDS: atorvaSTATin 40 MG Tab PO SCH (21:12)
[2025-03-26] MEDS: Lisinopril 10 MG Tab PO SCH (21:13)
[2025-03-26] MEDS: Sennosides 8.6 MG Tab PO SCH (21:14)
[2025-03-27 06:42] LABS: BASOPHILS PERCENT AUTO 0.2 % (0.2-1.2); EOSINOPHILS ABSOLUTE AUTO 0.2 x10^3/uL (0.0-0.5); EOSINOPHILS PERCENT AUTO 2.3 % (0.0-4.0); HEMATOCRIT 34.8 % (33.0-47.0); HEMOGLOBIN 11.4 g/dL (12.0-16.0); IMMATURE GRAN ABSOLUTE AUTO 0.01 x10^3/uL (0.00-0.07); LYMPHOCYTES ABSOLUTE AUTO 2.6 x10^3/uL (1.0-4.8); LYMPHOCYTES PERCENT AUTO 26.6 % (25.0-50.0); MEAN CORPUSCULAR HEMOGLOBIN 30.9 pg (26.0-32.0); MEAN CORPUSCULAR HGB CONC 32.8 g/dL (32.0-36.0); MEAN CORPUSCULAR VOLUME 94.3 fL (78.0-93.0); MONOCYTES ABSOLUTE AUTO 0.7 x10^3/uL (0.0-0.8); MONOCYTES PERCENT AUTO 7.2 % (2.0-11.0); NEUTROPHILS ABSOLUTE AUTO 6.2 x10^3/uL (1.8-7.7); NEUTROPHILS PERCENT AUTO 63.6 % (50.0-80.0); PLATELET COUNT,PLT 179 x10^3/uL (130-400); RED BLOOD CELL COUNT 3.69 x10^6/uL (4.00-5.50); WHITE BLOOD CELL COUNT,WBC 9.7 x10^3/uL (4.0-10.0)
[2025-03-27 06:57] LABS: CALCIUM 8.9 mg/dL (8.5-10.1); CREATININE 1.1 mg/dL (0.55-1.02); EST CRCL DRUG DOSING (CG) 33.46 mL/min; POTASSIUM,K 4.5 mmol/L (3.5-5.1)
[2025-03-27 07:01] LABS: ANION GAP 9.5 mmol/L (5-15)
[2025-03-27] MEDS: metFORMIN 500 MG Tab PO SCH (08:35)
[2025-03-27] MEDS: Insulin Lispro Protamine/Lispro 75-25 100 Units/ML 10 ML Vial SUBCUT SCH (17:56)
[2025-03-28 07:04] LABS: BASOPHILS PERCENT AUTO 0.2 % (0.2-1.2); EOSINOPHILS ABSOLUTE AUTO 0.3 x10^3/uL (0.0-0.5); EOSINOPHILS PERCENT AUTO 2.5 % (0.0-4.0); HEMATOCRIT 31.6 % (33.0-47.0); HEMOGLOBIN 10.5 g/dL (12.0-16.0); IMMATURE GRAN ABSOLUTE AUTO 0.02 x10^3/uL (0.00-0.07); LYMPHOCYTES ABSOLUTE AUTO 3.2 x10^3/uL (1.0-4.8); LYMPHOCYTES PERCENT AUTO 31.9 % (25.0-50.0); MEAN CORPUSCULAR HEMOGLOBIN 31.1 pg (26.0-32.0); MEAN CORPUSCULAR HGB CONC 33.2 g/dL (32.0-36.0); MEAN CORPUSCULAR VOLUME 93.5 fL (78.0-93.0); MONOCYTES ABSOLUTE AUTO 0.6 x10^3/uL (0.0-0.8); MONOCYTES PERCENT AUTO 6.4 % (2.0-11.0); NEUTROPHILS ABSOLUTE AUTO 5.9 x10^3/uL (1.8-7.7); NEUTROPHILS PERCENT AUTO 58.8 % (50.0-80.0); PLATELET COUNT,PLT 188 x10^3/uL (130-400); RED BLOOD CELL COUNT 3.38 x10^6/uL (4.00-5.50)
[2025-03-28 07:10] LABS: CALCIUM 8.6 mg/dL (8.5-10.1); CREATININE 1.1 mg/dL (0.55-1.02); EST CRCL DRUG DOSING (CG) 33.46 mL/min
[2025-03-28] MEDS: SEMAGLUTIDE 0.25 MG/0.368 ML SQ SCH (14:00)
[2025-03-28] MEDS: Enoxaparin 40 MG/0.4 ML Syringe SUBCUT SCH (14:32)
[2025-03-28] MEDS: Polyethylene Glycol 3350 Powder 17 GM Packet PO SCH (14:36)
[2025-03-28] MEDS: Sennosides 8.6 MG Tab PO SCH (20:38)
[2025-03-29 06:43] LABS: BASOPHILS PERCENT AUTO 0.4 % (0.2-1.2); EOSINOPHILS ABSOLUTE AUTO 0.3 x10^3/uL (0.0-0.5); EOSINOPHILS PERCENT AUTO 3.3 % (0.0-4.0); HEMATOCRIT 32.6 % (33.0-47.0); HEMOGLOBIN 10.9 g/dL (12.0-16.0); IMMATURE GRAN ABSOLUTE AUTO 0.01 x10^3/uL (0.00-0.07); LYMPHOCYTES ABSOLUTE AUTO 2.8 x10^3/uL (1.0-4.8); LYMPHOCYTES PERCENT AUTO 34.9 % (25.0-50.0); MEAN CORPUSCULAR HEMOGLOBIN 31.1 pg (26.0-32.0); MEAN CORPUSCULAR HGB CONC 33.4 g/dL (32.0-36.0); MEAN CORPUSCULAR VOLUME 92.9 fL (78.0-93.0); MONOCYTES ABSOLUTE AUTO 0.5 x10^3/uL (0.0-0.8); MONOCYTES PERCENT AUTO 5.9 % (2.0-11.0); NEUTROPHILS ABSOLUTE AUTO 4.5 x10^3/uL (1.8-7.7); NEUTROPHILS PERCENT AUTO 55.4 % (50.0-80.0); PLATELET COUNT,PLT 205 x10^3/uL (130-400); RED BLOOD CELL COUNT 3.51 x10^6/uL (4.00-5.50); WHITE BLOOD CELL COUNT,WBC 8.1 x10^3/uL (4.0-10.0)
[2025-03-29 06:56] LABS: CALCIUM 8.9 mg/dL (8.5-10.1); EST CRCL DRUG DOSING (CG) 36.81 mL/min
[2025-03-29] MEDS: traMADol 50 MG Tab PO ONE (10:01)
== END 2025-03-29 11:35 | DRG 638 ==
LOC: SUPCPDRO 15:31 → VM.ED 15:31 → VM.MS 19:24 → UNDOADMIN 19:24 → VM.MS 19:31 → OBSVTOIN 03-26 16:59
PROVIDERS: ADMIT Internal Medicine; ATTEND Nurse Practitioner Family
DX: S82.832A Other fracture of upper and lower end of left fibula, initial encounter for closed fracture (principal); S82.52XA Displaced fracture of medial malleolus of left tibia, initial encounter for closed fracture; E11.649 Type 2 diabetes mellitus with hypoglycemia without coma; S82.142A Displaced bicondylar fracture of left tibia, initial encounter for closed fracture; I25.10 Atherosclerotic heart disease of native coronary artery without angina pectoris; K21.9 Gastro-esophageal reflux disease without esophagitis; E11.9 Type 2 diabetes mellitus without complications; E78.00 Pure hypercholesterolemia, unspecified; M10.9 Gout, unspecified; M19.90 Unspecified osteoarthritis, unspecified site; M81.0 Age-related osteoporosis without current pathological fracture; W01.0XXA Fall on same level from slipping, tripping and stumbling without subsequent striking against object, initial encounter; F15.90 Other stimulant use, unspecified, uncomplicated; W18.30XA Fall on same level, unspecified, initial encounter; E66.9 Obesity, unspecified; K21.00 Gastro-esophageal reflux disease with esophagitis, without bleeding; I12.9 Hypertensive chronic kidney disease with stage 1 through stage 4 chronic kidney disease, or unspecified chronic kidney disease; D63.1 Anemia in chronic kidney disease; N18.31 Chronic kidney disease, stage 3a; G25.81 Restless legs syndrome; D50.9 Iron deficiency anemia, unspecified; K59.00 Constipation, unspecified; E11.22 Type 2 diabetes mellitus with diabetic chronic kidney disease; E78.5 Hyperlipidemia, unspecified; E66.01 Morbid (severe) obesity due to excess calories; Z88.1 Allergy status to other antibiotic agents; Z79.1 Long term (current) use of non-steroidal anti-inflammatories (NSAID); Z79.82 Long term (current) use of aspirin; Z79.899 Other long term (current) drug therapy; Z79.84 Long term (current) use of oral hypoglycemic drugs; Z79.4 Long term (current) use of insulin; Z95.0 Presence of cardiac pacemaker; Z87.19 Personal history of other diseases of the digestive system; Z98.891 History of uterine scar from previous surgery; Z90.710 Acquired absence of both cervix and uterus; Z87.81 Personal history of (healed) traumatic fracture; Y93.89 Activity, other specified; Y92.009 Unspecified place in unspecified non-institutional (private) residence as the place of occurrence of the external cause; Z68.35 Body mass index [BMI] 35.0-35.9, adult
CPT/HCPCS: 36415; 71045; 73030-LT; 73560-LT; 73590-LT; 73600-LT; 80048; 80053; 81001; 82550; 82947; 83735; 84443; 84484; 85025; 85610; 85730; 86140; 87086; 93005; 96374; 97162-GP; 97165-GO; 97530-GP; 97535-GO; 99223; 99223-GT; 99285-25; A9270-GY; C1758; G0378; J1650; J1815-GY; Q3014